=== PATIENT | female | born 1985 | race African-American/Black ===

== ENCOUNTER 2020-08-25 08:27 | Outpatient (CLI) | payer OTHER ==
[~2020-08-25] VITALS: Ht 165.1 cm; Wt 83.6 kg
[2020-08-25] MEDS ORDERED: ZYRTTAB8 PO (10:00)
== END 2020-08-25 09:45 | disposition home or self-care (01) ==
LOC: M LDO 08:27
PROVIDERS: ATTEND Registered Nurse
DX: O47.03 False labor before 37 completed weeks of gestation, third trimester (principal); Z3A.35 35 weeks gestation of pregnancy
CPT/HCPCS: 59025; G0378; G0463

== ENCOUNTER 2020-08-26 02:02 | Inpatient (IN) | payer OTHER ==
[2020-08-26] VITALS (19 sets, daily range): BP systolic 97–137; BP diastolic 51–86
[~2020-08-26] VITALS: Ht 165.1 cm; Wt 84.4 kg
[~2020-08-26 02:02] MED LIST: ZYRTTAB8 PO
[2020-08-26] MEDS ORDERED: OXYTOCIN DRIP 30 UNITS in IV 1 EA IV PRN (09:10)
[2020-08-26] MEDS ORDERED: LIDOCAINE 1% MDV 20ML VIAL INFIL PRN (09:10)
[2020-08-26 09:38] LABS: HEMOGLOBIN 10.6 g/dl (12.0-15.5); MEAN CORPUSCULAR HEMOGLOBIN 28.9 pg (27.0-33.0); MEAN CORPUSCULAR HGB CONC 33.1 g/dl (32.0-36.5); MEAN CORPUSCULAR VOLUME 87.2 fl (80.0-96.0); PLATELET COUNT, AUTOMATED 175 10^3/uL (150-450); RED BLOOD COUNT 3.67 10^6/uL (4.00-5.40)
--- NOTE | 2020-08-26 09:59 | HPEPDOC ---
Obstetrical History & Physical General Date of Admission History of Present Illness [id number] ed [id number] presenting to triage with increased frequency of contractions and history of painless labor. Admit to labor and delivery after change from 3cm to 5cm dilation during triage observation. Chief Complaint: Contractions, term Information Provided By: Patient Age: 35 : 4 Term: 3 Pre-term: 0 Abortions: 0 Livin Care Care: Good Care Dating Final EDC: Sep 05, 2020 Final EDC for Daily Update: Sep 05, 2020 Final EDC by: 1st trimester (US) 1st Trimester Date: Jan 24, 2020 Weeks + Days: 7 (+6) Estimated Date of Confinement: Sep 05, 2020 EGA at Admission: 38 (+4) Antepartum Course Diagnos(e)s closely spaced , pitialism, history of painless labor Height (inches): 65 Pre- weight (lbs.): 168 Admission Weight (lbs.): 183 Change in Weight (lbs.): 15 Past Medical History Past Obstetrical History #1: Past Obstetrical History: Multigravida Date of Delivery: Sep 25, 2012 Gestation: 40 Type of Delivery: Spontaneous Vaginal Del. (vacuum assist) Sex of Infant: Female Weight of (grams): 3620 Complications: No Past Obstetrical History #2: Past Obstetrical History: Multigravida Date of Delivery: Apr 16, 2018 Gestation: 39 (+4) Type of Delivery: Spontaneous Vaginal Del. (forceps assist) Sex of : Female Weight of Infant (grams): 3628 Complications: No Past Obstetrical History #3: Past Obstetrical History: Multigravida Date of Delivery: May 26, 2019 Gestation: 38 (+5) Type of Delivery: Spontaneous Vaginal Del. Sex of Infant: Female Weight of Infant (grams): 3670 Complications: No PLASTIC FINISHER History: Spontaneous Past Medical History Surgical History: Tonsilectomy, [place] teeth, Other (implantable contacts and PRK) Family History Significant Family History: Cancer (MGM-breast cancer, ovarian cancer), Heart disease (brother at 39) Social History Marital Status: Family situation: Spouse/partner home Psychosocial History: No pertinent psych hx * Smoker: non-smoker Alcohol: Denies Drugs: denies Abuse Violence Screening Have you been hit/kicked/slapp: No Have you been sexually assault: No Imunizations Tdap status: current (covid vaccine complete, pfizer-Jul, 19May) Influenza Status: current Allergies Coded Allergies: No Known Allergies (Verified Allergy, Unknown, 08/25/20) Medications Scheduled Cetirizine HCl/Pseudoephedrine (Zyrtec-D Tablet) 1 Each Tab.er.12h, 1 TAB PO DAILY Physical Examination Physical Examination GENERAL: Alert and oriented times three. BREAST: . ABDOMEN: Gravid and non-tender to touch. FETUS: Is vertex (VTX) by sterile vaginal examination (SVE), fetus is vertex (VTX) by [place]. HEART RATE: Regular rate and rhythm. LUNGS: Clear to auscultation (CTA). EXTREMITIES: No edema. No clonus. Deep tendon reflexes (DTRs) + 2. Vital Signs/I&O Vital Signs Date Time Temp Pulse Resp B/P (MAP) Pulse Ox O2 Delivery O2 Flow Rate FiO2 08/26/20 07:05 98.0 90 20 129/64 (85) 99 Room Air Pertinent Laboratoy Data Blood Type: O+ RBC Antibody Screen: Negative HIV: Negative Hepatitis B: Negative Rapid Plasma Reagin: Nonreactive Rubella: Immune Varicella: Immune Chlamydia/Gonorrhea: Negative Group B Streptococcus: Negative Cystic Fibrosis: Negative Glucose Tolerance Test: 112 Anatomy Ultrasound Placenta Location: Posterior Normal Anatomy: Yes Placenta Previa: No Steroid Therapy Steroid Therapy: No Vaginal Examination Dilation: 5 cm Effacement: 80% Station: -3 Cervical Consistency: Soft Cervical Position: Posterior Presentation: Cephalic presentation Position: Vertex (occiput) Assessment Heart Rate (FHR): 140 Accelerations: Present Decelerations: None Tocometer Contractions: Yes Frequency: every 2-5 min. Duration: greater than 60 seconds Strength: palpated as moderate, resting tone palp/soft Multi-drug resistant Organism: No history of MDRO Assessment/Plan Assessment Hazel is a 35-year-old (G)4 para (P)3-0-0-3 at 38+4 weeks by 7+6-week ultrasound. Presents to Labor and Delivery (L&D) for labor at term. Plan Admit and orient. 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 Diet: clears. Group B Streptococcus (GBS) negative. Labs and intravenous (IV) per unit protocol. Counseled on Pitocin and induction of labor (IOL). Saline lock. Anticipate [normal spontaneous delivery ()]. C-S as appropriate. MACARIO ABERNATHY CNM August 26, 2020 09:58
--- NOTE | 2020-08-26 12:19 | IPNPDOC ---
Obstetrical Progress Note Date of Service August 26, 2020 Subjective Pt walking in room, stating increased frequency of contractions and occasional back cramping. Objective Vital Signs Date Time Temp Pulse Resp B/P (MAP) Pulse Ox O2 Delivery O2 Flow Rate FiO2 08/26/20 10:47 97.1 91 20 121/60 (80) 98 Room Air Assessment Heart Rate (FHR): 120 Variability: Moderate Accelerations: Positive Decelerations: None Heart Rate Tracing: Category I Tocometer Contractions: Yes Frequency: regular (q2-3 min) Sterile Vaginal Examination Dilation: 6 cm Effacement (%): 80% Station: -3 Cervical Consistency: Soft Cervical Position: Middle Postion/Presentation: Cephalic presentation Assessment and Plan Age: 35 : 4 Term: 0 Pre-term: 0 Abortions: 0 Livin EGA at Admission: 38 (+4) Status: Reassuring Group B Streptococcus: Negative Anticipate: Vaginal Delivery Additional Comments saline lock, encourage oral hydration, continue frequent maternal movement, continuous efm x2, monitor for change in or maternal status, anticipate vaginal delivery MACARIO ABERNATHY CNM August 26, 2020 12:19
[2020-08-26] MEDS ORDERED: LR 1,000 ML IV SCH (14:25)
--- NOTE | 2020-08-26 14:28 | IPNPDOC ---
Obstetrical Progress Note Date of Service August 26, 2020 Subjective States increased vaginal pressure with contractions Objective Vital Signs Date Time Temp Pulse Resp B/P (MAP) Pulse Ox O2 Delivery O2 Flow Rate FiO2 08/26/20 12:40 81 120/71 (87) 08/26/20 12:39 97.9 16 08/26/20 10:47 98 Room Air Assessment Heart Rate (FHR): 120 Variability: Moderate Accelerations: Positive Decelerations: None Heart Rate Tracing: Category I Tocometer Contractions: Yes Frequency: every 1-5 min. Duration: greater than 60 seconds Strength: palpated as moderate, resting tone palp/soft Sterile Vaginal Examination Dilation: 6 cm Effacement (%): 80% Station: -3 Cervical Consistency: Soft Cervical Position: Middle Postion/Presentation: Cephalic presentation Assessment and Plan Age: 35 : 4 Term: 3 Pre-term: 0 Abortions: 0 Livin EGA at Admission: 38 (+4) Status: Reassuring Group B Streptococcus: Negative Anticipate: Vaginal Delivery Additional Comments start LR@125ml/hr, initiate pitocin augmentation and titrate per protocol, continuous efm x2, monitor for change in or maternal status, evaluate for change as indicated, encourage continued maternal movement, anticipate vaginal delivery MACARIO ABERNATHY CNM August 26, 2020 14:28
[2020-08-26] MEDS: CALCIUM CARBONATE 500 MG CHEW U/D PO SCH ×2 (14:47→20:53)
[2020-08-26] MEDS: OXYTOCIN DRIP 30 UNITS in IV 1 EA IV SCH ×2 (15:04→21:48)
[2020-08-26] MEDS ORDERED: METHYLERGONOVINE MALEATE 0.2 MG TAB PO PRN (18:00)
[2020-08-26] MEDS ORDERED: DIBUCAINE 1% OINTMENT 30GM TOP PRN (18:00)
[2020-08-26] MEDS ORDERED: RHOGAM 300 MCG (1500 IU) INJ (J2790) IM SCH (18:00)
[2020-08-26] MEDS ORDERED: DOCUSATE SODIUM 100MG CAPSULE PO PRN (18:00)
[2020-08-26] MEDS: IBUPROFEN 800 MG TAB PO PRN (18:14)
--- NOTE | 2020-08-26 18:25 | DNPDOC ---
[facility] Delivery Note Delivery Note DATE OF DELIVERY: 26Aug2020 PREDELIVERY DIAGNOSIS: 38-4/7 weeks' gestation and labor. POST DELIVERY DIAGNOSIS: Delivered. PROCEDURE: Spontaneous vaginal delivery. CHEMICAL MANAGER: Tracie Abernathy CNM ANESTHESIA: none. ESTIMATED BLOOD LOSS: 250 mL. FINDINGS: 7 pound 15 ounce male infant, Score 8/9, nuchal cord times one. DELIVERY SUMMARY: Patient is a 35-year-old 4 now para 4-0-0-4 who was admitted to labor and delivery for labor at term on 26Aug2020. Hazel progressed to complete while returning form the bathroom with an uncontrollable urge to push. She was assisted to a hands and knees position and coached to push with contractions.Rapid progress was made to . The head delivered in OA with restitution to HUMBERTO over an ntact perineum. A nuchal cord was noted after delivery of the head. The left anterior shoulder was delivered with gentle traction, followed easily by the posterior shoulder and corpus. The infant was somersaulted and the cord manually reduced.. The infant was passed through the maternal thighs to the mother where he was dried and stimulated for a vigorous cry. Pitocin infusion was initiated per protocol. Hazel was assisted to rotate to a supine position with the skin to skin. The cord was clamped x2 after pulsation ceased and cut by the FOB. Cord blood was collected and sent for testing. The placenta delivered spontaneously with a moderate gush of bleeding and the fundus firmed immediately. The vagina and cervix were swept with no clots noted. Mother and baby entered the recovery phase in stable condition, skin to skin. TRACIE ABERNATHY CNM August 26, 2020 18:25
[2020-08-26] MEDS: ACETAMINOPHEN TAB 650MG DOSE (2X325MG) PO PRN (19:15)
[2020-08-27] MEDS: ACETAMINOPHEN TAB 650MG DOSE (2X325MG) PO PRN (01:12)
[2020-08-27] MEDS: IBUPROFEN 800 MG TAB PO PRN ×2 (02:46→16:20)
[2020-08-27 05:57] VITALS: BP 105/58
[2020-08-27] MEDS ORDERED: PRENATAL VITAMINS CHEWABLE TABLET PO SCH (09:00)
[2020-08-27] MEDS: CALCIUM CARBONATE 500 MG CHEW U/D PO SCH ×2 (09:37→16:14)
--- NOTE | 2020-08-27 12:12 | OBDS ---
[facility] Obstetrical Discharge Sum. Obstetrical Discharge Summary Date: August 27, 2020 Time: 17:30 : 4 Term: 4 Pre-term: 0 Abortions: 0 Livin VDRL: ABO Blood Group (O) Rh: Positive Rubella: Immune Labor augmentation of labor at term Delivery over an intact perineum without lacerations Sex: Male Infant Weight: pounds (7), ounces Episiotomy n/a A/P, Post Course List any complications Admission diagnosis: Labor at term Discharge diagnosis: Day one PP . Condition at Discharge: stable Discharge Instructions: Home Activity: ad cedrick Diet: regular Medications: @[place] Follow-up: 6wk with control appt Other: reviewed options for control while with expressed desire for Depo provera at 6wk PP, pt to abstain from intercourse until that time. MACARIO ABERNATHY CNM August 27, 2020 12:12
[2020-08-27 18:04] VITALS: BP 118/62
== END 2020-08-27 18:55 | disposition home or self-care (01) | DRG 807 ==
LOC: M LDO 02:02 → M LDI 09:43 → M OBS 19:20
PROVIDERS: ADMIT Registered Nurse; ATTEND Registered Nurse
PROC: 10E0XZZ Delivery of Products of Conception, External Approach (ICD-10-PCS; principal; 2020-08-26)
DX: O69.81X0 Labor and delivery complicated by cord around neck, without compression, not applicable or unspecified (principal); Z37.0 Single live birth; Z3A.38 38 weeks gestation of pregnancy

== ENCOUNTER → 2022-04-04 | Outpatient (CLI) | payer OTHER | LOC: M SLEEP 20:00 | PROVIDERS: ATTEND Internal Medicine Pulmonary Disease | DX: G47.30 Sleep apnea, unspecified (principal) ==

== ENCOUNTER → 2022-05-09 | Outpatient (CLI) | payer OTHER ==
[~2022-05-09] MED LIST changes: +BARIUM SULFATE 700 MG TABLET (E-Z-DISK) As Ordered ONE; +E-Z-PAQUE 96% w/w SUSP 176GM BTL As Ordered ONE; +VARIBAR NECTAR 40% w/v 240ML SUSP BTL As Ordered ONE; +VARIBAR PUDDING 40% w/v 230ML TUBE As Ordered ONE
== END ==
LOC: M RAD 10:36
PROVIDERS: ATTEND Otolaryngology
DX: R13.19 Other dysphagia (principal)

== ENCOUNTER → 2022-05-10 | Outpatient (CLI) | payer OTHER ==
[~2022-05-10] MED LIST changes: -BARIUM SULFATE 700 MG TABLET (E-Z-DISK) As Ordered ONE; -E-Z-PAQUE 96% w/w SUSP 176GM BTL As Ordered ONE; -VARIBAR NECTAR 40% w/v 240ML SUSP BTL As Ordered ONE; -VARIBAR PUDDING 40% w/v 230ML TUBE As Ordered ONE
== END ==
LOC: M SLEEP 20:00
PROVIDERS: ATTEND Internal Medicine Pulmonary Disease
DX: G47.33 Obstructive sleep apnea (adult) (pediatric) (principal)